=== PATIENT | male | born 1955 | race Caucasian/White ===

== ENCOUNTER 2024-10-17 08:47 | Inpatient (IN) | payer OTHER, SELFPAY ==
[2024-10-17] VITALS (17 sets, daily range): BP systolic 149–176; BP diastolic 71–104; PULSE 95–123; RESP 12–32; TEMP 36.5–36.9; O2SAT 92–100; BMI 29.3; BMI 28.5
--- NOTE | 2024-10-17 08:50 | EDS_ITS ---
HPI History of Present Illness Chief Complaint: Shortness of Breath Informant: patient Onset/Context/Timing Onset: Today Context: sudden Timing: Continuous Quality: Positive for Dyspnea on exertion and Orthopnea Worsened by: Exertion and Lying flat Relieved by: Nothing Associated Symptoms cough; Negative for rhinorrhea, post nasal drip, ear pain, fever, sore throat, chills, sweats, clear sputum, white sputum, yellow sputum or green sputum Narrative Narrative: Patient presents with shortness of breath that began today. Patient states it began rather suddenly. Patient states that woke him up this morning. Patient states his breathing is worse when he lays flat. Patient states that is also worse with exertion. Patient states nothing seems to help with his breathing. Patient states he has a history of COPD. Patient admits to a cough but denies any sputum production. Patient denies any fevers or chills. Patient denies any sore throat or rhinorrhea. Patient denies any chest pain. [facility] Medical History Pneumothorax Hypertension Diabetes Emphysema of lung COPD (chronic obstructive pulmonary disease) Home Medications ?Medication ?Instructions ?Recorded ?Last Taken ?Type albuterol sulfate 1.25 mg/3 mL 0.5 mg inhalation 4X/DA Y PRN 10/17/24 10/17/24 History solution for nebulization shortness of breath or wheez ing albuterol sulfate 90 mcg/actuation 2 inh inhalation 4X /DAY PRN 10/17/24 Unknown History aerosol inhaler (Ventolin HFA) shortness of breath or wheezing budesonide 160 mcg-glycopyr 9 2 inh inhalation BID SILVANO ATHING 10/17/24 Unknown History mcg-formot 4.8 mcg/actuation HFA inhaler (Breztri Aerosphere) cholecalciferol (vitamin D3) 50 50 mcg PO DAILY SUPPLE MENT 10/17/24 10/16/24 History mcg (2,000 unit) capsule clozapine 100 mg tablet 150 mg PO QHS 10/17/2410/16 History docusate sodium 100 mg capsule 100 mg PO BID CONSTIPAT ION 10/17/24 10/16/24 History (Col-Rite) guaifenesin 600 mg tablet, 600 mg PO BID ALLERGIES 10/16/24 History extended release 12 hr hydrophilic 1 applic topical DAILY PRN d ry skin 10/17/24 Unknown History lidocaine 5 % topical patch 1 patch topical DAILY PRN pain 10/17/24 Unknown History (DermacinRx Lidocan) lisinopril 30 mg tablet 30 mg PO DAILY BLOOD PRESSUR E 10/17/24 10/16/24 History loperamide 2 mg capsule 2 mg PO Q6H PRN loose stool 10/17/24 Unknown History (Anti-Diarrheal (loperamide)) metformin 500 mg tablet 2,000 mg PO DAILY DIABETES 0 10/17/24 10/16/24 History mirabegron 25 mg tablet,extended 25 mg PO DAILY OVERRA CTIVE BLADDER 10/17/24 10/16/24 History release 24 hr (Myrbetriq) pantoprazole 40 mg tablet,delayed 40 mg PO DAILY 10/1710/16/24 History release rosuvastatin 40 mg tablet (Crestor) 40 mg PO DAILY CHO LESTROL 10/17/24 10/16/24 History semaglutide 1 mg/dose (4 mg/3 mL) 1 mg subcut QWEEK DI ABETES 10/17/24 10/11/24 History subcutaneous pen injector tamsulosin 0.4 mg capsule 0.8 mg PO QHS PROSTATE 10/1710/16/24 History Allergy/AdvReac Type Severity Reaction Status Date / Time No Known Allergies Allergy Verified 10/17/24 08:58 Surgical History H/O hernia repair Social History Smoking Status: Former smoker ROS ROS ED Constitutional Constitutional ED: Denies chills or fever(s) Eyes Eyes: Denies blurry vision or change in vision ENT ENT ED: Denies rhinorrhea or sore throat Cardiovascular Cardiovascular: Denies chest pain or palpitations Respiratory/Chest Respiratory/Chest: Reports cough and dyspnea Gastrointestinal Gastrointestinal: Denies nausea or vomiting Genitourinary Genitourinary ED: Denies dysuria or hematuria Musculoskeletal Musculoskeletal: Denies back pain or neck pain Integumentary Denies abscess or rash Neurologic Neurologic: Denies headache(s) or weakness Allergic/Immunologic Allergic/Immunologic ED: Denies mouth swelling or urticaria EXAM Physical Exam Const Vital Signs: 10/17/24 08:48 10/17/24 08:53 10/17/24 08:56 Temperature 97.9 F 97.9 F Temperature Source Oral Oral Pulse Rate 123 H 123 H Respiratory Rate 30 H 30 H Respiratory Effort Respiratory Depth Respiratory Pattern Blood Pressure 168/102 H 168/102 H Blood Pressure Mean 124 124 Pulse Ox 100 100 Oxygen Delivery Method Non-Rebreather Nasal Cannula Bi-pap Oxygen Flow Rate (L/min) 15 15 Fraction of Inspired Oxygen (FIO2) 10/17/24 08:56 10/17/24 08:56 10/17/24 09:17 Temperature Temperature Source Pulse Rate 119 H 120 H Respiratory Rate 28 H 24 H Respiratory Effort Respiratory Depth Respiratory Pattern Blood Pressure Blood Pressure Mean Pulse Ox 100 97 Oxygen Delivery Method Bi-pap Oxygen Flow Rate (L/min) Fraction of Inspired Oxygen (FIO2) 35 25 10/17/24 09:19 10/17/24 09:20 10/17/24 10:15 Temperature Temperature Source Pulse Rate 117 H Respiratory Rate 32 H Respiratory Effort Short of Breath Labored Respiratory Depth Shallow Respiratory Pattern Tachypnea Blood Pressure 170/88 H Blood Pressure Mean 115 Pulse Ox 97 Oxygen Delivery Method Nasal Cannula Oxygen Flow Rate (L/min) 2 Fraction of Inspired Oxygen (FIO2) 10/17/24 10:41 10/17/24 11:40 10/17/24 11:43 Temperature 97.8 F 97.8 F Temperature Source Temporal Temporal Pulse Rate 95 99 96 Respiratory Rate 28 H 21 H 25 H Respiratory Effort Respiratory Depth Respiratory Pattern Blood Pressure 172/92 H 174/101 H Blood Pressure Mean 118 125 Pulse Ox 99 98 Oxygen Delivery Method Oxygen Flow Rate (L/min) Fraction of Inspired Oxygen (FIO2) 10/17/24 12:06 Temperature 98 F Temperature Source Temporal Pulse Rate 100 Respiratory Rate 26 H Respiratory Effort Respiratory Depth Respiratory Pattern Blood Pressure 176/104 H Blood Pressure Mean 128 Pulse Ox 97 Oxygen Delivery Method Oxygen Flow Rate (L/min) Fraction of Inspired Oxygen (FIO2) Positive well nourished and well developed General Appearance ED: well developed HEENT Reports moist mucous membranes Neck supple and no meningeal signs Resp Auscultation: wheezes expiratory wheezes and throughout Cardio regular rhythm Rate: tachycardic GI non-tender and non-distended Palpation: soft Neuro oriented x3, CN's II-XII intact bilaterally and no sensory deficits noted [place] Coma Scale: document GCS findings Spontaneous Obeys Commands Oriented 15 Sensorium / Orientation: alert Speech: speech normal Motor Exam: strength 5/5 throughout Psych mental status grossly normal MDM MDM MDM Narrative Medical decision making narrative: Differential diagnosis includes COPD exacerbation, asthma, pneumonia, bronchitis, cardiac dysrhythmia, cardiac ischemia, electrolyte abnormality, and anxiety. EKG will be obtained to assess for cardiac dysrhythmia and cardiac ischemia. Chest x-ray will be obtained to assess for pneumonia or bronchitis. CBC will be obtained to assess for leukocytosis and anemia. Basic metabolic profile will be obtained to assess for electrolyte abnormality and renal function. High-sensitivity troponin will be obtained to assess for cardiac ischemia. History & Record Review Additional record(s) reviewed:: No prior records Lab Data Attestation: I reviewed the patient's lab results. Lab results narrative: CBC was reviewed and was within normal limits. Comprehensive metabolic profile was reviewed. Glucose was elevated at 200. The remainder is within normal limits. Serum lactate was reviewed and was less than 1.0. Initial high- sensitivity troponin was reviewed and was normal at 18. PT with INR and PTT were reviewed and were within normal limits. 2-hour repeat high-sensitivity troponin was reviewed and was 26. Urinalysis was reviewed. There is no evidence of urinary tract infection or hematuria. Labs: Laboratory Results - last 24 hr 10/17/24 10/17/24 10/17/24 08:50 09:38 10:40 WBC 7.8 RBC 5.08 Hgb 14.0 Hct 43.7 MCV 86.0 MCH 27.6 MCHC 32.0 RDW Std Deviation 44.9 H RDW Coeff of Joy 14.2 Plt Count 222 MPV 10.1 Immature Gran % (Auto) 0.300 Neut % (Auto) 61.7 Lymph % (Auto) 21.0 [place] % (Auto) 7.3 Eos % (Auto) 8.7 H Baso % (Auto) 1.0 Absolute Neuts (auto) 4.8 Absolute Lymphs (auto) 1.64 Nucleated RBC % 0 PT 13.8 INR 1.0 APTT 27.9 Sodium 143 Potassium 3.7 Chloride 105 Carbon Dioxide 27.4 Anion Gap 10 BUN 9 Creatinine 0.84 Estim Creat Clear Calc 94.70 Est GFR (MDRD) Non-Af 96 BUN/Creatinine Ratio 10.5 Glucose 200 H Lactic Acid < 1.0 Calcium 9.0 Total Bilirubin 0.29 AST 19 ALT 12 Alkaline Phosphatase 110 Troponin T High Sens 18 Troponin T Hi Sens 2 Hr 26 H Total Protein 6.7 Albumin 4.2 Globulin 2.5 Albumin/Globulin Ratio 1.7 Urine Color Yellow Urine Clarity Clear Urine pH 6.0 Ur Specific [place] 1.020 Urine Protein 100 H Urine Glucose (UA) 100 H Urine Ketones Negative Urine Occult Blood Negative Urine Nitrite Negative Urine Bilirubin Negative Urine Urobilinogen Normal Ur Leukocyte Esterase Negative Urine RBC 0 SEEN Urine WBC 0 SEEN Ur Squamous Epith Cells 0 SEEN Urine Bacteria 0 SEEN Urine Mucus 0 SEEN ABG Data Attestation: I personally reviewed and interpreted this ABG as follows: Interpretation: Venous blood gas was obtained. pH was 7.301, pCO2 was 62.2, PO2 was 43.3, bicarb was 30.7, and oxygen saturation was 72.4%. ABG results: ABG 10/17/24 09:03 Specimen Type BAILEE Sample Site Not entered VBG pH 7.30 L VBG pO2 43 H VBG HCO3 31 H VBG Total CO2 33 VBG O2 Sat (Calc) 72 H VBG Base Excess 4 H POC Mix VBG pCO2 Pt Tmp 62.2 H O2 Delivery Device Cannula Radiography Chest X-Ray - ED: 1 View, Read by ED Physician, Read by Radiologist and - (Mild pulmonary vascular congestion) Diagnostic Testing: Clinical Impression(s) from Imaging Studies Chest X-Ray 10/17/24 09:40 IMPRESSION: No focal consolidations. Mild pulmonary vascular congestion. Reading Location: [facility] Portable 1 view chest x-ray was obtained. On my independent interpretation, lung lopez showed mild pulmonary vascular congestion. There is normal cardiac silhouette. Bony thorax is normal. There is no acute process noted. Radiologist also interpreted the x-ray and agrees. EKG Initial EKG: Attestation: I personally reviewed and interpreted this EKG as follows: Interpretation: Sinus Tachycardia (121), RBBB, LAFB and Non-Specific ST Changes Comments: EKG was obtained. On my independent interpretation, shows sinus tachycardia with a rate of 121. SC interval was normal at 142 ms. QRS interval was slightly prolonged at 134 ms. QTc interval was borderline at 499 ms. There is left axis deviation -57. There is a right bundle branch block pattern noted. There is a left anterior fascicular block noted. There is left ventricular hypertrophy with nonspecific ST-T wave changes noted. Prior EKG tracings: not available for review Prior: No Prior Management Discussion w/another healthcare provider: Hospitalist Treatment and Re-Evaluation :: Patient was started on BiPAP. Patient was given a DuoNeb aerosol. Patient was given a dose of Solu-Medrol. Patient was given a repeat albuterol aerosol. Patient was still having some wheezing on reevaluation. Patient was able to be weaned off BiPAP and is currently on room air. Because of the elevation of his troponin and persistent wheezing, I recommended admission to the hospital. Case was discussed with the hospitalist. He will admit the patient to his service. Patient understood and was agreeable with the plan. All questions were answered. Discharge Plan Dx/Rx/DC Orders Clinical Impression: Acute exacerbation of chronic obstructive pulmonary disease (COPD), Elevated troponin, Hypertension, Diabetes mellitus Disposition Disposition: Acute Care Hospital [facility]
--- NOTE | 2024-10-17 09:00 | CPS ---
FiO2 decreased to 25%, RN aware.
--- NOTE | 2024-10-17 09:00 | EKG12_ITS ---
Test Reason : SOB Blood Pressure : */* mmHG Vent. Rate : 121 BPM Atrial Rate : 121 BPM P-R Int : 142 ms QRS Dur : 134 ms QT Int : 352 ms P-R-T Axes : 85 -57 88 degrees QTcB Int : 499 ms Sinus tachycardia Right bundle branch block Left anterior fascicular block Bifascicular block Left ventricular hypertrophy with repolarization abnormality ( R in aVL ) ABNORMAL Confirmed by Gaurav Nagy ([id number]), image editor PANCHITO ASHFORD ([id number]) on 10/25/2024 1:04:50 PM Referred By: CIERA Confirmed By: Gaurav Nagy
[2024-10-17 09:06] LABS: Blood Gas Specimen Type VEN; O2 Delivery Device Cannula; SITE Not entered; VBG BASE EXCESS 4 mmol/L (-1.0-3.5); VBG Bicarbonate 31 mmol/L (22-26); VBG PO2 43 mmHg (25-40); VBG SO2 72 % (50-70); VBG TCO2 33 mmol/L (23-33); VBG pCO2 62.2 mmHg (41-51)
[2024-10-17] MEDS: MethylPREDNISolone 125 MG/2 ML Vial 80 MG IV (09:09)
[2024-10-17] MEDS: Ipratropium/Albuterol Sulfate 3 ML AMPUL.NEB INHALATION ×4 (09:10→23:29)
[2024-10-17 09:18] LABS: Absolute Lymphocyte Count 1.64 X10^3/uL (0.83-4.51); Absolute Neutrophil Count 4.8 X10^3/uL (2.0-7.7); Basophil# 0.08 X10^3/uL; Eosinophil# 0.68 X10^3/uL; Eosinophils% 8.7 % (0-5); Hematocrit 43.7 % (40-54); Lymphocyte # 1.64 X10^3/ul (0.83-4.51); Mean Corpuscular Hgb 27.6 pg (27.0-32.0); Mean Platelet Vol. 10.1 fl (6.2-12.0); Monocyte# 0.57 X10^3/uL; Monocyte% 7.3 % (0-10); NRBC Flagged by Analyzer 0 % (0-5); Neutrophil # 4.81 X10^3/uL (2.7-7.7); Neutrophil % 61.7 % (47-70); Platelet Count 222 K/mm3 (150-450); RBC Distribution Width CV 14.2 % (11.6-14.6); RBC Distribution Width SD 44.9 fl (35.1-43.9); Red Blood Count 5.08 M/mm3 (4.6-6.2); White Blood Count 7.8 K/mm3 (4.4-11.0)
[2024-10-17 09:24] LABS: Partial Thromboplast Time 27.9 Seconds (24.1-36.2); Prothrombin Time (Protime)PT. 13.8 SECONDS (11.7-14.9)
--- NOTE | 2024-10-17 09:40 | RAD_ITS ---
PROCEDURE: CHEST 1 VIEW (PORTABLE) 10/17/2024 REASON FOR EXAM: DYSPNEA TECHNIQUE: Frontal view of the chest. COMPARISON: None FINDINGS: No focal consolidations. Bibasilar subsegmental atelectasis. Mild pulmonary vascular congestion. Cardiac silhouette is within normal limits. No pleural effusion or pneumothorax. No acute fractures. RAD/Chest 1 View (Portable) IMPRESSION: No focal consolidations. Mild pulmonary vascular congestion. Reading Location: [id number]
[2024-10-17 09:42] LABS: Bacteria 0 SEEN /hpf (None Seen); Mucous, Urine 0 SEEN /hpf (<or=2+); Red Blood Cells-Urine 0 SEEN /hpf (0-5); Squamous Epithelial Cells - UA 0 SEEN /hpf (0-5); White Blood Cells 0 SEEN /hpf (0-5)
[2024-10-17 09:46] LABS: ALB/GLOB Ratio 1.7 RATIO (0.9-2.4); AST(SGOT) 19 U/L (<=37); Alanine Aminotransfer ALT/SGPT 12 U/L (<=46); Albumin, Serum 4.2 g/dL (3.4-4.8); Alkaline Phosphatase 110 U/L (40-129); Anion Gap 10 (5-15); BUN 9 mg/dL (4-19); BUN/Creat Ratio 10.5 RATIO (10-20); Carbon Dioxide 27.4 mmol/L (21.0-32.0); Chloride 105 mmol/L (98-108); Creatinine, Serum 0.84 mg/dL (0.70-1.20); EST Glomerular Filtration Rate 96 (>60); Globulin 2.5 g/dL (2.2-4.2); Glucose 200 mg/dL (70-99); Potassium 3.7 mmol/L (3.3-5.1); Protein, Total 6.7 g/dL (5.9-8.4); Sodium Level 143 mmol/L (133-145); Total Bilirubin 0.29 mg/dL (0.00-1.30); Troponin T High Sensitivity 18 ng/L (<=22)
[2024-10-17 09:54] LABS: Lactic Acid < 1.0 mmol/L (0.0-2.0)
[2024-10-17 09:55] LABS: Color, Urine Yellow (Yellow); Glucose, Dipstick 100 mg/dl (Normal); Ketone-Dipstick Negative (Negative); Leukocyte Esterase-Dipstick Negative /ul (Negative); Nitrite-Dipstick Negative (Negative); Occult Blood-Urine Negative /ul (Negative); Protein-Dipstick 100 mg/dl (Negative); Urine Bilirubin Dipstick Negative (Negative); Urine Clarity Clear (Clear); Urine Urobilinogen Normal (Normal)
[2024-10-17 11:06] LABS: Troponin T High Sens 2 HR 26 ng/L (<=22)
[2024-10-17] MEDS: Albuterol 2.5 MG/3 ML VIAL.NEB. INHALATION (11:40)
--- NOTE | 2024-10-17 12:24 | ED.RN ---
Called [facility]. Transfer line stated that it would be best to admit pt here and go from there.
--- NOTE | 2024-10-17 12:36 | HP.PCM.HOS_ITS ---
HPI - General General Date of Admission: 10/17/24 Date of Service: 10/17/24 Chief Complaint: Shortness of breath HPI Narrative AARON REDMOND, is a 68 M past medical history seen for shortness of breath who is currently complaining the area presented to the emergency department with shortness of breath. Per patient he was in usual state of health a day prior to his admission when he started experiencing significant shortness of breath as well as associated wheezing and persistent cough. Patient had apparently used his aerosol treatment without much improvement. He finally called the squad on the morning of his presentation was brought to the emergency department. Patient was found to be significantly hypoxic and dyspneic at rest was placed on noninvasive ventilation. Subsequently admitted to a monitored bed for further manage [facility] Medical History Pneumothorax Hypertension Diabetes Emphysema of lung COPD (chronic obstructive pulmonary disease) Home Medications ?Medication ?Instructions ?Recorded ?Last Taken ?Type albuterol sulfate 1.25 mg/3 mL 0.5 mg inhalation 4X/DA Y PRN 10/17/24 10/17/24 History solution for nebulization shortness of breath or wheez ing albuterol sulfate 90 mcg/actuation 2 inh inhalation 4X /DAY PRN 10/17/24 Unknown History aerosol inhaler (Ventolin HFA) shortness of breath or wheezing budesonide 160 mcg-glycopyr 9 2 inh inhalation BID SILVANO ATHING 10/17/24 Unknown History mcg-formot 4.8 mcg/actuation HFA inhaler (Breztri Aerosphere) cholecalciferol (vitamin D3) 50 50 mcg PO DAILY SUPPLE MENT 10/17/24 10/16/24 History mcg (2,000 unit) capsule clozapine 100 mg tablet 150 mg PO QHS 10/17/2410/16 History docusate sodium 100 mg capsule 100 mg PO BID CONSTIPAT ION 10/17/24 10/16/24 History (Col-Rite) guaifenesin 600 mg tablet, 600 mg PO BID ALLERGIES 10/16/24 History extended release 12 hr hydrophilic 1 applic topical DAILY PRN d ry skin 10/17/24 Unknown History lidocaine 5 % topical patch 1 patch topical DAILY PRN pain 10/17/24 Unknown History (DermacinRx Lidocan) lisinopril 30 mg tablet 30 mg PO DAILY BLOOD PRESSUR E 10/17/24 10/16/24 History loperamide 2 mg capsule 2 mg PO Q6H PRN loose stool 10/17/24 Unknown History (Anti-Diarrheal (loperamide)) metformin 500 mg tablet 2,000 mg PO DAILY DIABETES 0 10/17/24 10/16/24 History mirabegron 25 mg tablet,extended 25 mg PO DAILY OVERRA CTIVE BLADDER 10/17/24 10/16/24 History release 24 hr (Myrbetriq) pantoprazole 40 mg tablet,delayed 40 mg PO DAILY 10/1710/16/24 History release rosuvastatin 40 mg tablet (Crestor) 40 mg PO DAILY CHO LESTROL 10/17/24 10/16/24 History semaglutide 1 mg/dose (4 mg/3 mL) 1 mg subcut QWEEK DI ABETES 10/17/24 10/11/24 History subcutaneous pen injector tamsulosin 0.4 mg capsule 0.8 mg PO QHS PROSTATE 10/1710/16/24 History Allergy/AdvReac Type Severity Reaction Status Date / Time No Known Allergies Allergy Verified 10/17/24 08:58 Surgical History H/O hernia repair Social History Smoking Status: Former smoker ROS ROS Narrative GENERAL: denies fever, chills, night sweats, weight loss, anorexia HEENT: denies headache, sinus congestion, or drainage, dysphagia RESPIRATORY: cough, sputum production, shortness of breath, dyspnea on exertion CARDIAC: denies chest pain, palpitations, orthopnea, PND GASTROINTESTINAL: denies abdominal pain, nausea, vomiting, melena, GENITOURINARY: denies dysuria, urgency, frequency, heamaturia EXTREMITY: denies swelling MUSCULOSKELETAL: denies current joint pain or tenderness NEUROLOGIC: denies focal numbness, weakness, tingling HEMATOLOGIC: denies easy bruising and/or hemorrhage INTEGUMENT: denies rashes PSYCHIATRIC: denies suicidal or homicidal ideation Vital Signs Vital Signs Vital Signs: 10/17/24 08:48 10/17/24 08:53 10/17/24 08:56 Temperature 97.9 F 97.9 F Temperature Source Oral Oral Pulse Rate 123 H 123 H Respiratory Rate 30 H 30 H Respiratory Effort Respiratory Depth Respiratory Pattern Blood Pressure 168/102 H 168/102 H Blood Pressure Mean 124 124 Pulse Ox 100 100 Oxygen Delivery Method Non-Rebreather Nasal Cannula Bi-pap Oxygen Flow Rate (L/min) 15 15 Fraction of Inspired Oxygen (FIO2) 10/17/24 08:56 10/17/24 08:56 10/17/24 09:17 Temperature Temperature Source Pulse Rate 119 H 120 H Respiratory Rate 28 H 24 H Respiratory Effort Respiratory Depth Respiratory Pattern Blood Pressure Blood Pressure Mean Pulse Ox 100 97 Oxygen Delivery Method Bi-pap Oxygen Flow Rate (L/min) Fraction of Inspired Oxygen (FIO2) 35 25 10/17/24 09:19 10/17/24 09:20 10/17/24 10:15 Temperature Temperature Source Pulse Rate 117 H Respiratory Rate 32 H Respiratory Effort Short of Breath Labored Respiratory Depth Shallow Respiratory Pattern Tachypnea Blood Pressure 170/88 H Blood Pressure Mean 115 Pulse Ox 97 Oxygen Delivery Method Nasal Cannula Oxygen Flow Rate (L/min) 2 Fraction of Inspired Oxygen (FIO2) 10/17/24 10:41 10/17/24 11:40 10/17/24 11:43 Temperature 97.8 F 97.8 F Temperature Source Temporal Temporal Pulse Rate 95 99 96 Respiratory Rate 28 H 21 H 25 H Respiratory Effort Respiratory Depth Respiratory Pattern Blood Pressure 172/92 H 174/101 H Blood Pressure Mean 118 125 Pulse Ox 99 98 Oxygen Delivery Method Oxygen Flow Rate (L/min) Fraction of Inspired Oxygen (FIO2) 10/17/24 12:06 Temperature 98 F Temperature Source Temporal Pulse Rate 100 Respiratory Rate 26 H Respiratory Effort Respiratory Depth Respiratory Pattern Blood Pressure 176/104 H Blood Pressure Mean 128 Pulse Ox 97 Oxygen Delivery Method Oxygen Flow Rate (L/min) Fraction of Inspired Oxygen (FIO2) Weight Weight: 90.1 kg Body Mass Index (BMI) 29.3 Physical Exam Narrative GENERAL: cooperative but significantly dyspneic at rest HEENT: Atraumatic; normocephalic EYES; Anicteric, Normal Conjunctiva NECK; supple, normal thyroid, RESPIRATORY: Diminished to auscultation with bilateral wheezes CARDIOVASCULAR: Regular S1 S2, tachycardic GI: soft, normoactive bowel sounds, : No Renal angle tenderness; EXTREMITIES: No edema, no clubbing, MUSCULOSKELETAL: no muscle wasting NEURO: Awake; no lateralizing signs. SKIN: No Rash PSYCH; Flat affect Results Lab / Micro Data 10/17/24 08:50 10/17/24 08:50 Labs: Laboratory Results - last 24 hr 10/17/24 08:50: WBC 7.8, RBC 5.08, Hgb 14.0, Hct 43.7, MCV 86.0, MCH 27.6, MCHC 32.0, RDW Std Deviation 44.9 H, RDW Coeff of Joy 14.2, Plt Count 222, MPV 10.1, Immature Gran % (Auto) 0.300, Neut % (Auto) 61.7, Lymph % (Auto) 21.0, [place] % (Auto) 7.3, Eos % (Auto) 8.7 H, Baso % (Auto) 1.0, Absolute Neuts (auto) 4.8, Absolute Lymphs (auto) 1.64, Nucleated RBC % 0, PT 13.8, INR 1.0, APTT 27.9, Sodium 143, Potassium 3.7, Chloride 105, Carbon Dioxide 27.4, Anion Gap 10, BUN 9, Creatinine 0.84, Estim Creat Clear Calc 94.70, Est GFR (MDRD) Non-Af 96, BUN/Creatinine Ratio 10.5, Glucose 200 H, Lactic Acid < 1.0, Calcium 9.0, Total Bilirubin 0.29, AST 19, ALT 12, Alkaline Phosphatase 110, Troponin T High Sens 18, Total Protein 6.7, Albumin 4.2, Globulin 2.5, Albumin/Globulin Ratio 1.7 10/17/24 09:38: Urine Color Yellow, Urine Clarity Clear, Urine pH 6.0, Ur Specific [place] 1.020, Urine Protein 100 H, Urine Glucose (UA) 100 H, Urine Ketones Negative, Urine Occult Blood Negative, Urine Nitrite Negative, Urine Bilirubin Negative, Urine Urobilinogen Normal, Ur Leukocyte Esterase Negative, Urine RBC 0 SEEN, Urine WBC 0 SEEN, Ur Squamous Epith Cells 0 SEEN, Urine Bacteria 0 SEEN, Urine Mucus 0 SEEN 10/17/24 10:40: Troponin T Hi Sens 2 Hr 26 H ABG Data ABG results: ABG 10/17/24 09:03 Specimen Type BAILEE Sample Site Not entered VBG pH 7.30 L VBG pO2 43 H VBG HCO3 31 H VBG Total CO2 33 VBG O2 Sat (Calc) 72 H VBG Base Excess 4 H POC Mix VBG pCO2 Pt Tmp 62.2 H O2 Delivery Device Cannula Imaging Radiology Impression Chest X-Ray 10/17/24 09:40 IMPRESSION: No focal consolidations. Mild pulmonary vascular congestion. Reading Location: [facility] Assessment & Plan Assessment/Plan (1) Hypertension: (2) Acute exacerbation of chronic obstructive pulmonary disease (COPD): PLAN: Plan Patient is a 68-year-old gentleman presenting with shortness of breath 1. Acute hypoxic respiratory failure Secondary to COPD with acute exacerbation. Patient was placed on noninvasive ventilation BiPAP admitted to a monitored bed as part of his management patient started on systemic steroid, bronchodilator treatment and antibiotic therapy with cefdinir. Patient oxygen saturations currently being titrated to keep saturation greater than or above 90. As part of patient's evaluation ordered acute viral respiratory panel, COVID assay. Chest x-ray obtained in the ED was questionable for mild pulmonary vascular congestion however patient presentation not consistent with acute congestive heart failure 2. Accelerated hypertension ? Patient systolic blood pressure was markedly elevated in the ED with SBP greater than 180. Per patient he has not taken his a.m. medications. Plan is to reconcile and resume patient home meds also added hydralazine as needed for systolic blood pressure greater than 160 3. Diabetes mellitus type II -patient's oral hypoglycemics held. Placed on long acting insulin, Accu-Cheks a.c. and at bedtime and covered with sliding scale insulin 4. Elevated troponin Secondary to demand ischemia from hypoxia will monitor and obtain a 2D echo as part of patient's evaluation 5. Schizoaffective disorder ? Patient is on clozapine plan is to continue with home dose 6. GERD ? Patient is on PPI continue 7. BPH with lower urinary obstructive symptoms - Patient treated with tamsulosin 8. DVT prophylaxis ? On enoxaparin Advance planning; did discuss with the patient regarding advanced directives as well as CODE STATUS. Did explain the various scenarios involved ( FULL CODE, DNR CCA, DNR CCA with no intubation, and DNR CC and what each meant) patient elected to be to remain full code with CPR and intubation if needed. Order was placed. Time spent on discussion 18 minutes. Charges/Coding Multi Select Codes Visit Charges Visit Charges: 26129 Init Hosp L3 Hospitalists' Procedures Procedures: 43421 Advncd Care Plan 30 Min
[2024-10-17 13:09] LABS: Troponin T High Sens 4 HR 30 ng/L (<=22)
[2024-10-17] MEDS: Cefdinir 300 MG Capsule PO ×2 (15:35→21:31)
[2024-10-17] MEDS: 0.9% Saline Lock 10 ML Syringe IV ×2 (15:36→21:45)
[2024-10-17 17:04] LABS: Bedside Glucose 366 mg/dL (74-106)
[2024-10-17] MEDS: Insulin Lispro 100 UNIT/ML INSULN.PEN SC ×2 (17:21→21:37)
[2024-10-17] MEDS: Lisinopril 10 MG Tablet 30 MG PO (18:44)
[2024-10-17] MEDS: cloZAPine 25 MG TABLET 150 MG PO (21:31)
[2024-10-17] MEDS: guaiFENesin 600 MG Tablet PO (21:31)
[2024-10-17] MEDS: Docusate Sodium 100 MG Capsule PO (21:31)
[2024-10-17] MEDS: Tamsulosin HCl 0.4 MG Capsule 0.8 MG PO (21:32)
[2024-10-17] MEDS: Atorvastatin Calcium 80 MG Tablet PO (21:32)
[2024-10-17 22:36] LABS: Bedside Glucose 285 mg/dL (74-106)
[2024-10-18] VITALS (11 sets, daily range): BP systolic 142–158; BP diastolic 74–78; PULSE 90–100; RESP 16–24; TEMP 35.9–36.9; O2SAT 91–97
[2024-10-18] MEDS: Ipratropium/Albuterol Sulfate 3 ML AMPUL.NEB INHALATION ×6 (03:31→22:56)
[2024-10-18 05:01] LABS: Absolute Lymphocyte Count 0.86 X10^3/uL (0.83-4.51); Absolute Neutrophil Count 5.4 X10^3/uL (2.0-7.7); Basophil# 0.01 X10^3/uL; Basophil% 0.2 % (0-1); Hematocrit 41.5 % (40-54); Hemoglobin 13.7 g/dL (13.0-16.5); Lymphocyte # 0.86 X10^3/ul (0.83-4.51); Lymphocyte % 13.3 % (19-41); Mean Corpuscular Hgb 27.6 pg (27.0-32.0); Mean Corpuscular Volume 83.5 fL (80-94); Mean Platelet Vol. 10.9 fl (6.2-12.0); Monocyte# 0.15 X10^3/uL; Monocyte% 2.3 % (0-10); NRBC Flagged by Analyzer 0 % (0-5); Neutrophil # 5.44 X10^3/uL (2.7-7.7); Neutrophil % 83.7 % (47-70); Platelet Count 222 K/mm3 (150-450); RBC Distribution Width SD 42.8 fl (35.1-43.9); Red Blood Count 4.97 M/mm3 (4.6-6.2); White Blood Count 6.5 K/mm3 (4.4-11.0)
[2024-10-18 05:26] LABS: Anion Gap 12 (5-15); BUN 12 mg/dL (4-19); Calcium,Total 9.2 mg/dL (7.6-11.0); Chloride 102 mmol/L (98-108); Creatinine, Serum 0.78 mg/dL (0.70-1.20); EST Glomerular Filtration Rate 98 (>60); Estimated Creatinine Clearance 98.27 ml/min (50-250); Glucose 247 mg/dL (70-99); Magnesium 2.2 mg/dL (1.5-2.2); Potassium 3.6 mmol/L (3.3-5.1); Sodium Level 138 mmol/L (133-145)
[2024-10-18] MEDS: Insulin Lispro 100 UNIT/ML INSULN.PEN SC ×4 (06:18→20:37)
[2024-10-18] MEDS: Mag Hydrox/Al Hydrox/Simeth 30 ML UDC PO (06:23)
[2024-10-18 06:51] LABS: Bedside Glucose 224 mg/dL (74-106)
--- NOTE | 2024-10-18 07:23 | ECHOD_ITS ---
Reason For Study Reason For Study: Dyspnea/SOB Procedure This was a 2D Doppler, Color Flow transthoracic echocardiogram. Exam performed portable in patient room. Left Ventricle Normal left ventricle. The estimated ejection fraction is 55-60 %. Right Ventricle Normal right ventricle. Normal systolic function. Atria Normal left atrium. Normal right atrium. Mitral Valve The mitral valve is structurally normal. No prolapse or stenosis seen. Tricuspid Valve Normal tricuspid valve. Aortic Valve Trisinus/trileaflet aortic valve. Pulmonic Valve The pulmonic valve is not well visualized. Great Vessels Normal sized aortic root. Pericardium/Pleural No pericardial effusion. MMode/2D Measurements & Calculations LVIDd: 4.6 cm IVSd: 1.4 cm Ao root diam: 3.0 cm LVIDs: 3.2 cm LVPWd: 1.4 cm RVDd: 3.4 cm FS: 29.7 % LAV(MOD-bp): 38.4 ml LVAd ap4: 29.4 cm2 SV(MOD-sp4): 52.6 ml LAV(MOD-bp) Indexed: 18.7 ml/m2 LVLd ap4: 7.6 cm SI(MOD-sp4): 25.6 ml/m2 LAV(MOD-sp2): 41.7 ml EDV(MOD-sp4): 92.9 ml LAV(MOD-sp4): 32.1 ml EDV(sp4-el): 96.3 ml LVAs ap4: 16.6 cm2 LVLs ap4: 6.0 cm ESV(MOD-sp4): 40.3 ml ESV(sp4-el): 38.7 ml EF(MOD-sp4): 56.6 % EF(sp4-el): 59.9 % SV(sp4-el): 57.7 ml LA A4 area: 14.4 cm2 LA dimension(2D): 3.4 cm RA A4 area: 10.3 cm2 TAPSE: 2.5 cm Time Measurements MV dec time: 0.19 sec Doppler Measurements & Calculations MV E max aleks: 91.8 cm/sec Lat Peak E' Aleks: 8.2 cm/sec Med Peak E' Aleks: 5.9 cm/sec MV A max aleks: 120.7 cm/sec E/E' lat: 11.2 E/E' med: 15.5 MV E/A: 0.76 Ao V2 max: 193.6 cm/sec LV V1 max: 115.1 cm/sec MV dec slope: 493.3 cm/sec2 Ao max P.0 mmHg LV V1 max P.3 mmHg Ao V2 mean: 135.4 cm/sec Ao mean P.4 mmHg Ao V2 VTI: 40.7 cm PA V2 max: 111.0 cm/sec ECHO/Echo Complete Interpretation Summary The estimated ejection fraction is 55-60 %. Normal LV systolic function No significant valvular abnormality No prior echocardiogram to compare. Ordering Physician: Magan Cooper Referring Physician: [facility] Performed By: Susanna Love, REBECA, RVT
[2024-10-18] MEDS: Enoxaparin 40 MG/0.4 ML Syringe SC (07:52)
[2024-10-18] MEDS: Vibegron 75 MG TABLET PO (07:52)
[2024-10-18] MEDS: guaiFENesin 600 MG Tablet PO ×2 (07:52→20:39)
[2024-10-18] MEDS: Cefdinir 300 MG Capsule PO ×2 (07:52→20:39)
[2024-10-18] MEDS: Lisinopril 10 MG Tablet 30 MG PO (07:52)
[2024-10-18] MEDS: Pantoprazole Sodium 40 MG Tablet PO (07:53)
--- NOTE | 2024-10-18 07:58 | PCM.PN.HOSP ---
Reason for Visit Reason for Visit: Diagnoses Essential (primary) hypertension (10/17/24) Chronic obstructive pulmonary disease with (acute) exacerbation (10/17/24) Subjective Subjective Patient is a 68-year-old gentleman presenting with shortness of breath. An assessment of Acute hypoxic respiratory failure Secondary to COPD with acute exacerbation. Treatment initiated per protocol patient admitted to monitored bed Objective Data Objective Data Vital Signs: Vital Signs Temp Pulse Resp BP Pulse Ox O2 Del Method O2 Flow Rate 97.8 F 91 16 155/78 H 95 Nasal Cannula 3 10/18/24 07:48 10/18/24 07:48 10/18/24 07:48 10/18/24 07:48 10/18/24 07:48 10/18/24 07:48 10/18/24 07:41 FiO2 25 10/17/24 09:17 Oxygen Flow Rate (L/min) 3 Oxygen Delivery Method Nasal Cannula Weight: 87.8 kg Body Mass Index (BMI) 28.5 Intake & Output: Intake and Output for Last 24 Hours 10/16/24 10/17/24 10/18/24 23:59 23:59 23:59 Intake Total 300 / 300 Output Total 300 / 300 1000 / 1000 Balance 0 / 0 -1000 / -1000 Lab / Micro Data 10/18/24 04:14 10/18/24 04:14 Labs: Laboratory Results - last 24 hr 10/17/24 08:50: WBC 7.8, RBC 5.08, Hgb 14.0, Hct 43.7, MCV 86.0, MCH 27.6, MCHC 32.0, RDW Std Deviation 44.9 H, RDW Coeff of Joy 14.2, Plt Count 222, MPV 10.1, Immature Gran % (Auto) 0.300, Neut % (Auto) 61.7, Lymph % (Auto) 21.0, Isabel[place] % (Auto) 7.3, Eos % (Auto) 8.7 H, Baso % (Auto) 1.0, Absolute Neuts (auto) 4.8, Absolute Lymphs (auto) 1.64, Nucleated RBC % 0, PT 13.8, INR 1.0, APTT 27.9, Sodium 143, Potassium 3.7, Chloride 105, Carbon Dioxide 27.4, Anion Gap 10, BUN 9, Creatinine 0.84, Estim Creat Clear Calc 94.70, Est GFR (MDRD) Non-Af 96, BUN/Creatinine Ratio 10.5, Glucose 200 H, Lactic Acid < 1.0, Calcium 9.0, Total Bilirubin 0.29, AST 19, ALT 12, Alkaline Phosphatase 110, Troponin T High Sens 18, Total Protein 6.7, Albumin 4.2, Globulin 2.5, Albumin/Globulin Ratio 1.7 10/17/24 09:38: Urine Color Yellow, Urine Clarity Clear, Urine pH 6.0, Ur Specific Schroeder 1.020, Urine Protein 100 H, Urine Glucose (UA) 100 H, Urine Ketones Negative, Urine Occult Blood Negative, Urine Nitrite Negative, Urine Bilirubin Negative, Urine Urobilinogen Normal, Ur Leukocyte Esterase Negative, Urine RBC 0 SEEN, Urine WBC 0 SEEN, Ur Squamous Epith Cells 0 SEEN, Urine Bacteria 0 SEEN, Urine Mucus 0 SEEN 10/17/24 10:40: Troponin T Hi Sens 2 Hr 26 H 10/17/24 12:45: Troponin T Hi Sens 4Hr 30 H 10/17/24 16:42: POC Glucose 366 H 10/17/24 21:36: POC Glucose 285 H 10/18/24 04:14: WBC 6.5, RBC 4.97, Hgb 13.7, Hct 41.5, MCV 83.5, MCH 27.6, MCHC 33.0, RDW Std Deviation 42.8, RDW Coeff of Joy 14.0, Plt Count 222, MPV 10.9, Immature Gran % (Auto) 0.500, Neut % (Auto) 83.7 H, Lymph % (Auto) 13.3 L, Isabel[place] % (Auto) 2.3, Eos % (Auto) 0.0, Baso % (Auto) 0.2, Absolute Neuts (auto) 5.4, Absolute Lymphs (auto) 0.86, Nucleated RBC % 0, Sodium 138, Potassium 3.6, Chloride 102, Carbon Dioxide 24.0, Anion Gap 12, BUN 12, Creatinine 0.78, Estim Creat Clear Calc 98.27, Est GFR (MDRD) Non-Af 98, BUN/Creatinine Ratio 15.0, Glucose 247 H, Calcium 9.2, Phosphorus 3.0, Magnesium 2.2 10/18/24 06:17: POC Glucose 224 H Micro: Microbiology 10/17/24 14:12 Stool Clostridioides difficile (PCR) - Final 10/17/24 13:40 Mucosa - Nasopharyngeal Respiratory Panel (PCR) - Final 10/17/24 15:38 Nasal Secretion SARS-CoV-2 Antigen (Rapid) - Final ABG Data ABG results: ABG 10/17/24 09:03 Specimen Type BAILEE Sample Site Not entered VBG pH 7.30 L VBG pO2 43 H VBG HCO3 31 H VBG Total CO2 33 VBG O2 Sat (Calc) 72 H VBG Base Excess 4 H POC Mix VBG pCO2 Pt Tmp 62.2 H O2 Delivery Device Cannula Radiography Diagnostic Testing: Radiology Impression Chest X-Ray 10/17/24 09:40 IMPRESSION: No focal consolidations. Mild pulmonary vascular congestion. Reading Location: [facility] Physical Exam Narrative GENERAL: cooperative HEENT: Atraumatic; normocephalic EYES; Anicteric, Normal Conjunctiva NECK; supple, normal thyroid, RESPIRATORY: Diminished to auscultation with bilateral wheezes CARDIOVASCULAR: Regular S1 S2, tachycardic GI: soft, normoactive bowel sounds, : No Renal angle tenderness; EXTREMITIES: No edema, no clubbing, MUSCULOSKELETAL: no muscle wasting NEURO: Awake; no lateralizing signs. SKIN: No Rash PSYCH; Flat affect Assessment & Plan Assessment/Plan (1) Hypertension: (2) Acute exacerbation of chronic obstructive pulmonary disease (COPD): PLAN: Plan Patient is a 68-year-old gentleman presenting with shortness of breath 1. Acute hypoxic respiratory failure Secondary to COPD with acute exacerbation. Patient was placed on noninvasive ventilation BiPAP admitted to a monitored bed as part of his management patient started on systemic steroid, bronchodilator treatment and antibiotic therapy with cefdinir. Patient oxygen saturations currently being titrated to keep saturation greater than or above 90. As part of patient's evaluation ordered acute viral respiratory panel, COVID assay. Chest x-ray obtained in the ED was questionable for mild pulmonary vascular congestion however patient presentation not consistent with acute congestive heart failure ? 10/18/2024; patient subsequently been weaned off BiPAP. Now on nasal cannula.Plans for patient to be assessed for home oxygen prior to discharge 2. Accelerated hypertension ? Patient systolic blood pressure was markedly elevated in the ED with SBP greater than 180. Per patient he has not taken his a.m. medications. Plan is to reconcile and resume patient home meds also added hydralazine as needed for systolic blood pressure greater than 160 ? 10/18/2024; patient blood pressure levels still remain elevated however there has been some improvement compared to when first admitted. 3. Diabetes mellitus type II -patient's oral hypoglycemics held. Placed on long acting insulin, Accu-Cheks a.c. and at bedtime and covered with sliding scale insulin ? 10/18/2024; patient glucose levels elevated given concomitant use of steroid subsequently adjusted insulin dose 4. Elevated troponin Secondary to demand ischemia from hypoxia will monitor and obtain a 2D echo as part of patient's evaluation 5. Schizoaffective disorder ? Patient is on clozapine plan is to continue with home dose 6. GERD ? Patient is on PPI continue 7. BPH with lower urinary obstructive symptoms - Patient treated with tamsulosin 8. DVT prophylaxis ? On enoxaparin Charges/Coding Visit Charges Inpatient E&M: 39471 Subs Hosp L2
[2024-10-18] MEDS: Acetaminophen 325 MG Tablet 650 MG PO (08:15)
[2024-10-18] MEDS: Insulin Glargine-YFGN 100 UNIT/ML Pen 10 UNIT SC ×2 (11:43→20:38)
[2024-10-18 12:18] LABS: Bedside Glucose 338 mg/dL (74-106)
[2024-10-18] MEDS: 0.9% Saline Lock 10 ML Syringe IV (13:35)
[2024-10-18 16:41] LABS: Bedside Glucose 367 mg/dL (74-106)
[2024-10-18] MEDS: Atorvastatin Calcium 80 MG Tablet PO (20:39)
[2024-10-18] MEDS: Tamsulosin HCl 0.4 MG Capsule 0.8 MG PO (20:39)
[2024-10-18] MEDS: Docusate Sodium 100 MG Capsule PO (20:39)
[2024-10-18 21:39] LABS: Bedside Glucose 359 mg/dL (74-106)
[2024-10-18] MEDS: cloZAPine 25 MG TABLET 150 MG PO (21:55)
[2024-10-19] VITALS (15 sets, daily range): BP systolic 133–157; BP diastolic 72–88; PULSE 65–120; RESP 16–24; TEMP 36–36.8; O2SAT 86–98
[2024-10-19] MEDS: Ipratropium/Albuterol Sulfate 3 ML AMPUL.NEB INHALATION ×6 (03:16→23:05)
[2024-10-19] MEDS: Insulin Lispro 100 UNIT/ML INSULN.PEN SC ×4 (06:19→22:28)
[2024-10-19 06:37] LABS: Bedside Glucose 244 mg/dL (74-106)
[2024-10-19 07:16] LABS: Basophil# 0.02 X10^3/uL; Basophil% 0.2 % (0-1); Eosinophil# 0.01 X10^3/uL; Eosinophils% 0.1 % (0-5); Hematocrit 40.1 % (40-54); Lymphocyte % 13.3 % (19-41); Mean Corp Hgb Conc 32.4 g/dL (32-36); Mean Corpuscular Hgb 27.5 pg (27.0-32.0); Mean Corpuscular Volume 84.8 fL (80-94); Mean Platelet Vol. 10.4 fl (6.2-12.0); Monocyte# 0.74 X10^3/uL; Monocyte% 6.6 % (0-10); NRBC Flagged by Analyzer 0 % (0-5); Neutrophil # 8.96 X10^3/uL (2.7-7.7); Neutrophil % 79.3 % (47-70); Platelet Count 230 K/mm3 (150-450); RBC Distribution Width CV 14.6 % (11.6-14.6); RBC Distribution Width SD 45.2 fl (35.1-43.9); Red Blood Count 4.73 M/mm3 (4.6-6.2); White Blood Count 11.3 K/mm3 (4.4-11.0)
[2024-10-19 07:44] LABS: Anion Gap 10 (5-15); BUN 15 mg/dL (4-19); BUN/Creat Ratio 16.8 RATIO (10-20); Calcium,Total 8.9 mg/dL (7.6-11.0); Carbon Dioxide 26.2 mmol/L (21.0-32.0); Chloride 102 mmol/L (98-108); Creatinine, Serum 0.91 mg/dL (0.70-1.20); EST Glomerular Filtration Rate 92 (>60); Estimated Creatinine Clearance 86.39 ml/min (50-250); Glucose 261 mg/dL (70-99); Potassium 3.9 mmol/L (3.3-5.1); Sodium Level 139 mmol/L (133-145)
--- NOTE | 2024-10-19 07:46 | DS.PCM_ITS ---
Providers Date of Admission: 10/17/24 Primary Care Physician: [facility] Reason For Visit: COPD WITH ACUTE EXACERBATION Diagnosis Discharge Diagnosis (1) Hypertension: Status: Chronic Code(s): I10 - Essential (primary) hypertension (2) Acute exacerbation of chronic obstructive pulmonary disease (COPD): Status: Chronic Code(s): J44.1 - Chronic obstructive pulmonary disease with (acute) exacerbation Plan Patient is a 68-year-old gentleman presenting with shortness of breath 1. Acute hypoxic respiratory failure Secondary to COPD with acute exacerbation. Patient was placed on noninvasive ventilation BiPAP admitted to a monitored bed as part of his management patient started on systemic steroid, bronchodilator treatment and antibiotic therapy with cefdinir. Patient oxygen saturations currently being titrated to keep saturation greater than or above 90. As part of patient's evaluation ordered acute viral respiratory panel, COVID assay. Chest x-ray obtained in the ED was questionable for mild pulmonary vascular congestion however patient presentation not consistent with acute congestive heart failure ? 10/18/2024; patient subsequently been weaned off BiPAP. Now on nasal cannula.Plans for patient to be assessed for home oxygen prior to discharge 2. Accelerated hypertension ? Patient systolic blood pressure was markedly elevated in the ED with SBP greater than 180. Per patient he has not taken his a.m. medications. Plan is to reconcile and resume patient home meds also added hydralazine as needed for systolic blood pressure greater than 160 ? 10/18/2024; patient blood pressure levels still remain elevated however there has been some improvement compared to when first admitted. 3. Diabetes mellitus type II -patient's oral hypoglycemics held. Placed on long acting insulin, Accu-Cheks a.c. and at bedtime and covered with sliding scale insulin ? 10/18/2024; patient glucose levels elevated given concomitant use of steroid subsequently adjusted insulin dose 4. Elevated troponin Secondary to demand ischemia from hypoxia will monitor and obtain a 2D echo as part of patient's evaluation 5. Schizoaffective disorder ? Patient is on clozapine plan is to continue with home dose 6. GERD ? Patient is on PPI continue 7. BPH with lower urinary obstructive symptoms - Patient treated with tamsulosin 8. DVT prophylaxis ? On enoxaparin Medications at Discharge Home Medications albuterol sulfate 1.25 mg/3 mL solution for nebulization 0.5 mg inhalation 4X/DAY PRN shortness of breath or wheezing 10/17/24 albuterol sulfate 90 mcg/actuation aerosol inhaler (Ventolin HFA) 2 inh inhalation 4X/DAY PRN shortness of breath or wheezing 10/17/24 budesonide 160 mcg-glycopyr 9 mcg-formot 4.8 mcg/actuation HFA inhaler (Breztri Aerosphere) 2 inh inhalation BID BREATHING 10/17/24 cholecalciferol (vitamin D3) 50 mcg (2,000 unit) capsule 50 mcg PO DAILY SUPPLEMENT 10/17/24 clozapine 100 mg tablet 150 mg PO QHS 10/17/24 docusate sodium 100 mg capsule (Col-Rite) 100 mg PO BID CONSTIPATION 10/17/24 guaifenesin 600 mg tablet, extended release 12 hr 600 mg PO BID ALLERGIES 10/17/24 hydrophilic 1 applic topical DAILY PRN dry skin 10/17/24 lidocaine 5 % topical patch (DermacinRx Lidocan) 1 patch topical DAILY PRN pain 10/17/24 lisinopril 30 mg tablet 30 mg PO DAILY BLOOD PRESSURE 10/17/24 loperamide 2 mg capsule (Anti-Diarrheal (loperamide)) 2 mg PO Q6H PRN loose stool 10/17/24 metformin 500 mg tablet 2,000 mg PO DAILY DIABETES 10/17/24 mirabegron 25 mg tablet,extended release 24 hr (Myrbetriq) 25 mg PO DAILY OVERRACTIVE BLADDER 10/17/24 pantoprazole 40 mg tablet,delayed release 40 mg PO DAILY 10/17/24 rosuvastatin 40 mg tablet (Crestor) 40 mg PO DAILY CHOLESTROL 10/17/24 semaglutide 1 mg/dose (4 mg/3 mL) subcutaneous pen injector 1 mg subcut QWEEK DIABETES 10/17/24 tamsulosin 0.4 mg capsule 0.8 mg PO QHS PROSTATE 10/17/24 Weight / BMI Weight Weight: 87.8 kg Body Mass Index (BMI) 28.5 ABG / Lab / Microbiology Data 10/19/24 06:35 10/19/24 06:35 Laboratory: Laboratory Results - last 24 hr 10/18/24 11:42: POC Glucose 338 H 10/18/24 16:14: POC Glucose 367 H 10/18/24 20:36: POC Glucose 359 H 10/19/24 06:18: POC Glucose 244 H 10/19/24 06:35: WBC 11.3 H, RBC 4.73, Hgb 13.0, Hct 40.1, MCV 84.8, MCH 27.5, MCHC 32.4, RDW Std Deviation 45.2 H, RDW Coeff of Joy 14.6, Plt Count 230, MPV 10.4, Immature Gran % (Auto) 0.500, Neut % (Auto) 79.3 H, Lymph % (Auto) 13.3 L, [place] % (Auto) 6.6, Eos % (Auto) 0.1, Baso % (Auto) 0.2, Absolute Neuts (auto) 9.0 H, Absolute Lymphs (auto) 1.50, Nucleated RBC % 0, Sodium 139, Potassium 3.9, Chloride 102, Carbon Dioxide 26.2, Anion Gap 10, BUN 15, Creatinine 0.91, Estim Creat Clear Calc 86.39, Est GFR (MDRD) Non-Af 92, BUN/Creatinine Ratio 16.8, Glucose 261 H, Calcium 8.9 Microbiology: Microbiology 10/17/24 14:12 Stool Clostridioides difficile (PCR) - Final 10/17/24 13:40 Mucosa - Nasopharyngeal Respiratory Panel (PCR) - Final 10/17/24 15:38 Nasal Secretion SARS-CoV-2 Antigen (Rapid) - Final Radiography Diagnostic Testing: Radiology Impression Echocardiogram 10/18/24 07:23 Interpretation Summary The estimated ejection fraction is 55-60 %. Normal LV systolic function No significant valvular abnormality No prior echocardiogram to compare. Ordering Physician: Magna Cooper Referring Physician: [facility] Performed By: Susanna Love, REBECA, RVT Meaningful Use Info Ischemic Stroke Statin Dosing Therapy Reference: STATIN DOSE THERAPY REFERENCE: * Patients > 75 years receive moderate or high dose statin therapy. * Patients 75 years or YOUNGER should receive HIGH intensity statin dose unless contraindicated. You will be required to document reason for non-treatment if statin daily dose does not meet guidelines. HIGH DOSE STATIN THERAPY DAILY Atorvastatin > than or = to 40 mg Rosuvastatin > than or = to 20 mg Amlodipine + Atorvastatin > than or = to 2.5/40 mg Ezetimibe + Simvastatin 10/80 mg Simvastatin 80mg Discharge Plan Admission Admit Date/Time: 10/17/24 12:21 Attending Provider: Magan Cooper Primary Care Provider: [facility] Discharge Orders/Prescriptions Prescriptions: No Action lisinopril 30 mg tablet 30 mg PO DAILY tamsulosin 0.4 mg capsule 0.8 mg PO QHS loperamide [Anti-Diarrheal (loperamide)] 2 mg capsule 2 mg PO Q6H PRN (Reason: loose stool) rosuvastatin [Crestor] 40 mg tablet 40 mg PO DAILY clozapine 100 mg tablet 150 mg PO QHS mirabegron [Myrbetriq] 25 mg tablet extended release 24 hr 25 mg PO DAILY pantoprazole 40 mg tablet,delayed release (DR/EC) 40 mg PO DAILY semaglutide 1 mg/dose (4 mg/3 mL) pen injector 1 mg subcut QWEEK Rx Instructions: TAKE ON MONDAYS lidocaine [DermacinRx Lidocan] 5 % adhesive patch,medicated 1 patch topical DAILY PRN (Reason: pain) Rx Instructions: leave on most painful area for up to 12 hrs metformin 500 mg tablet 2,000 mg PO DAILY guaifenesin 600 mg tablet extended release 12hr 600 mg PO BID docusate sodium [Col-Rite] 100 mg capsule 100 mg PO BID hydrophilic Ointment 1 applic topical DAILY PRN (Reason: dry skin) cholecalciferol (vitamin D3) 50 mcg (2,000 unit) capsule 50 mcg PO DAILY albuterol sulfate 1.25 mg/3 mL solution for nebulization 0.5 mg inhalation 4X/DAY PRN (Reason: shortness of breath or wheezing) Breztri Aerosphere 160-9-4.8 mcg/actuation HFA aerosol inhaler 2 inh inhalation BID albuterol sulfate [Ventolin HFA] 90 mcg/actuation HFA aerosol inhaler 2 inh inhalation 4X/DAY PRN (Reason: shortness of breath or wheezing) Referrals / Follow Up: [facility] [Primary Care Provider] -
[2024-10-19] MEDS: Cefdinir 300 MG Capsule PO ×2 (08:30→22:27)
[2024-10-19] MEDS: predniSONE 20 MG Tablet 40 MG PO (08:30)
[2024-10-19] MEDS: guaiFENesin 600 MG Tablet PO ×2 (08:30→22:27)
[2024-10-19] MEDS: Pantoprazole Sodium 40 MG Tablet PO (08:30)
[2024-10-19] MEDS: Docusate Sodium 100 MG Capsule PO ×2 (08:31→22:27)
[2024-10-19] MEDS: Vibegron 75 MG TABLET PO (08:31)
[2024-10-19] MEDS: Lisinopril 10 MG Tablet 30 MG PO (08:37)
[2024-10-19] MEDS: Insulin Glargine-YFGN 100 UNIT/ML Pen 10 UNIT SC ×2 (08:41→22:29)
[2024-10-19] MEDS: Enoxaparin 40 MG/0.4 ML Syringe SC (08:42)
--- NOTE | 2024-10-19 09:09 | PN.HOSP_ITS ---
Reason for Visit Reason for Visit: Diagnoses Essential (primary) hypertension (10/17/24) Chronic obstructive pulmonary disease with (acute) exacerbation (10/17/24) Subjective Subjective Patient seen remains dyspneic and tachypneic at rest. Objective Data Objective Data Vital Signs: Vital Signs Temp Pulse Resp BP Pulse Ox O2 Del Method O2 Flow Rate 97.8 F 90 18 152/77 H 94 Nasal Cannula 2 10/19/24 08:14 10/19/24 08:14 10/19/24 08:14 10/19/24 08:14 10/19/24 08:14 10/19/24 08:44 10/19/24 08:44 FiO2 21 10/19/24 00:00 Oxygen Flow Rate (L/min) 2 Oxygen Delivery Method Nasal Cannula Weight: 87.8 kg Body Mass Index (BMI) 28.5 Intake & Output: Intake and Output for Last 24 Hours 10/17/24 10/18/24 10/19/24 23:59 23:59 23:59 Intake Total 300 / 300 1340 / 1340 Output Total 300 / 300 1000 / 1425 1000 / 1000 Balance 0 / 0 340 / -85 -1000 / -1000 Lab / Micro Data 10/19/24 06:35 10/19/24 06:35 Labs: Laboratory Results - last 24 hr 10/18/24 11:42: POC Glucose 338 H 10/18/24 16:14: POC Glucose 367 H 10/18/24 20:36: POC Glucose 359 H 10/19/24 06:18: POC Glucose 244 H 10/19/24 06:35: WBC 11.3 H, RBC 4.73, Hgb 13.0, Hct 40.1, MCV 84.8, MCH 27.5, MCHC 32.4, RDW Std Deviation 45.2 H, RDW Coeff of Joy 14.6, Plt Count 230, MPV 10.4, Immature Gran % (Auto) 0.500, Neut % (Auto) 79.3 H, Lymph % (Auto) 13.3 L, [place] % (Auto) 6.6, Eos % (Auto) 0.1, Baso % (Auto) 0.2, Absolute Neuts (auto) 9.0 H, Absolute Lymphs (auto) 1.50, Nucleated RBC % 0, Sodium 139, Potassium 3.9, Chloride 102, Carbon Dioxide 26.2, Anion Gap 10, BUN 15, Creatinine 0.91, Estim Creat Clear Calc 86.39, Est GFR (MDRD) Non-Af 92, BUN/Creatinine Ratio 16.8, Glucose 261 H, Calcium 8.9 Micro: Microbiology 10/17/24 14:12 Stool Clostridioides difficile (PCR) - Final 10/17/24 13:40 Mucosa - Nasopharyngeal Respiratory Panel (PCR) - Final 10/17/24 15:38 Nasal Secretion SARS-CoV-2 Antigen (Rapid) - Final Radiography Diagnostic Testing: Radiology Impression Echocardiogram 10/18/24 07:23 Interpretation Summary The estimated ejection fraction is 55-60 %. Normal LV systolic function No significant valvular abnormality No prior echocardiogram to compare. Ordering Physician: Magan Cooper Referring Physician: [facility] Performed By: Susanna Love, REBECA, RVT Physical Exam Narrative GENERAL: Dyspneic at rest HEENT: Atraumatic; normocephalic EYES; Anicteric, Normal Conjunctiva NECK; supple, normal thyroid, RESPIRATORY: Diminished to auscultation with bilateral wheezes CARDIOVASCULAR: Regular S1 S2, tachycardic GI: soft, normoactive bowel sounds, : No Renal angle tenderness; EXTREMITIES: No edema, no clubbing, MUSCULOSKELETAL: no muscle wasting NEURO: Awake; no lateralizing signs. SKIN: No Rash PSYCH; Flat affect Assessment & Plan Assessment/Plan (1) Hypertension: (2) Acute exacerbation of chronic obstructive pulmonary disease (COPD): PLAN: Plan Patient is a 68-year-old gentleman presenting with shortness of breath 1. Acute hypoxic respiratory failure Secondary to COPD with acute exacerbation. Patient was placed on noninvasive ventilation BiPAP admitted to a monitored bed as part of his management patient started on systemic steroid, bronchodilator treatment and antibiotic therapy with cefdinir. Patient oxygen saturations currently being titrated to keep saturation greater than or above 90. As part of patient's evaluation ordered acute viral respiratory panel, COVID assay. Chest x-ray obtained in the ED was questionable for mild pulmonary vascular congestion however patient presentation not consistent with acute congestive heart failure ? 10/18/2024; patient subsequently been weaned off BiPAP. Now on nasal cannula.Plans for patient to be assessed for home oxygen prior to discharge ? 10/19/2024; plan was for patient to have been assessed for possible discharge however patient remains significantly dyspneic at rest will therefore keep for an additional day pending medical stabilization. Patient to be assessed for home oxygen prior to discharge 2. Accelerated hypertension ? Patient systolic blood pressure was markedly elevated in the ED with SBP greater than 180. Per patient he has not taken his a.m. medications. Plan is to reconcile and resume patient home meds also added hydralazine as needed for systolic blood pressure greater than 160 ? 10/18/2024; patient blood pressure levels still remain elevated however there has been some improvement compared to when first admitted. 3. Diabetes mellitus type II -patient's oral hypoglycemics held. Placed on long acting insulin, Accu-Cheks a.c. and at bedtime and covered with sliding scale insulin ? 10/18/2024; patient glucose levels elevated given concomitant use of steroid subsequently adjusted insulin dose 4. Elevated troponin Secondary to demand ischemia from hypoxia will monitor and obtain a 2D echo as part of patient's evaluation 5. Schizoaffective disorder ? Patient is on clozapine plan is to continue with home dose 6. GERD ? Patient is on PPI continue 7. BPH with lower urinary obstructive symptoms - Patient treated with tamsulosin 8. DVT prophylaxis ? On enoxaparin Charges/Coding Visit Charges Inpatient E&M: 11660 Subs Hosp L2
[2024-10-19] MEDS: Albuterol 2.5 MG/3 ML VIAL.NEB. INHALATION (09:18)
--- NOTE | 2024-10-19 10:49 | CASEMGMT ---
RN CM Assessment Face to Face with patient for initial transition planning/care coordination assessment. RN CM introduced self and role at [facility], pt voices understanding. Pt is A&Ox4 and is resting comfortably in the chair and is calm. Care providers, pharmacy, and demographics verified. Admitting dx: COPD with acute Exacerbation LACE Strata: 2 PCP: Dr. Cox through the [facility] Specialists: Pulmonology through the [place] Preferred Pharmacy: [facility] Insurance: [facility] Only. Pt denies having a secondary as he reports he cannot afford it Prescription Benefit: Yes LNOK: Pt reports that he has 6 children. Pt reports that his daughters are his primary support people including Юлия, Elena, and Samantha. Living Arrangements: Pt is around this [facility] camping. Pt is from [place] and plans to DC back to [place] once medically ready. Pt lives with his daughter (Юлия), ASHLEY, and GD in a single story home with 4 steps to enter ADLs/IADLs: Pt reports that he is mainly independent but that his family assists him as needed Transportation: Pt's daughters are his main source of transportation. DME: [employer] with sufficient supplies and pen needles for insulin shots. Pt has a regular BGM with sufficient supplies as a backup. Pt also states that he has a FWW, quad cane, straight cane, shower chair, grab bars, pulse ox, BP Machine, inhaler, and nebulizer. Pt does not have home oxygen. Pt reports that [facility] only [facility] Per the compliance testing analyst today, pt qualifies for 2L w/ exertion. However, Dr. Cooper states that the pt will not be discharging today and will likely be discharging tomorrow. CM to follow for updated O2 testing the day of DC. This RN CM provided the pt with the required prerequisite paperwork needed for home oxygen through the [place]/ [facility] for signing. HHC/SNF: Reports skilled HHC history through the [place] Smoking history: Pt states that he quit smoking over 10 years ago Pt?s goal: Home Plan: Home with pt's family support, follow for new oxygen needs. Pt denies the acute need for HH or OP therapy and states that he feels safe returning home with his family once medically ready. Pt states that he plans to crab picker his prescriptions at his pharmacy on his way back home to [place]. Pt states he plans to follow up with his PCP subsequently. Pt denies further needs at this time. CM to follow. Jono Mccurdy RN CM
[2024-10-19] MEDS: LORazepam 1 MG Tablet PO ×2 (11:18→22:36)
[2024-10-19 16:50] LABS: Bedside Glucose 358 mg/dL (74-106)
[2024-10-19 17:04] LABS: Bedside Glucose 370 mg/dL (74-106)
[2024-10-19] MEDS: cloZAPine 25 MG TABLET 150 MG PO (22:27)
[2024-10-19] MEDS: Tamsulosin HCl 0.4 MG Capsule 0.8 MG PO (22:27)
[2024-10-19] MEDS: Atorvastatin Calcium 80 MG Tablet PO (22:27)
[2024-10-19] MEDS: 0.9% Saline Lock 10 ML Syringe IV (22:28)
[2024-10-19 23:16] LABS: Bedside Glucose 335 mg/dL (74-106)
[2024-10-20] VITALS (9 sets, daily range): BP systolic 140–176; BP diastolic 71–85; PULSE 72–98; RESP 18–20; TEMP 36.2–36.9; O2SAT 88–99
[2024-10-20] MEDS: hydrALAZINE 20 MG/ML Vial 10 MG IV (05:05)
[2024-10-20] MEDS: 0.9% Saline Lock 10 ML Syringe IV ×2 (05:05→06:07)
[2024-10-20] MEDS: LORazepam 1 MG Tablet PO (05:56)
[2024-10-20 06:05] LABS: Absolute Lymphocyte Count 1.82 X10^3/uL (0.83-4.51); Absolute Neutrophil Count 6.8 X10^3/uL (2.0-7.7); Basophil# 0.03 X10^3/uL; Basophil% 0.3 % (0-1); Eosinophil# 0.25 X10^3/uL; Eosinophils% 2.6 % (0-5); Hematocrit 39.3 % (40-54); Hemoglobin 12.6 g/dL (13.0-16.5); Lymphocyte # 1.82 X10^3/ul (0.83-4.51); Lymphocyte % 18.9 % (19-41); Mean Corp Hgb Conc 32.1 g/dL (32-36); Mean Corpuscular Hgb 27.5 pg (27.0-32.0); Mean Corpuscular Volume 85.6 fL (80-94); Mean Platelet Vol. 10.9 fl (6.2-12.0); Monocyte% 7.3 % (0-10); NRBC Flagged by Analyzer 0 % (0-5); Neutrophil # 6.76 X10^3/uL (2.7-7.7); Platelet Count 213 K/mm3 (150-450); RBC Distribution Width CV 14.3 % (11.6-14.6); RBC Distribution Width SD 44.5 fl (35.1-43.9); Red Blood Count 4.59 M/mm3 (4.6-6.2); White Blood Count 9.7 K/mm3 (4.4-11.0)
[2024-10-20] MEDS: Ondansetron 4 MG/2 ML Vial IV (06:07)
[2024-10-20] MEDS: Insulin Lispro 100 UNIT/ML INSULN.PEN SC ×2 (06:16→12:01)
[2024-10-20 06:31] LABS: Anion Gap 10 (5-15); BUN 15 mg/dL (4-19); BUN/Creat Ratio 18.7 RATIO (10-20); Calcium,Total 8.6 mg/dL (7.6-11.0); Carbon Dioxide 27.4 mmol/L (21.0-32.0); Chloride 101 mmol/L (98-108); Creatinine, Serum 0.82 mg/dL (0.70-1.20); EST Glomerular Filtration Rate 96 (>60); Estimated Creatinine Clearance 95.87 ml/min (50-250); Glucose 267 mg/dL (70-99); Potassium 3.8 mmol/L (3.3-5.1); Sodium Level 139 mmol/L (133-145)
[2024-10-20 07:03] LABS: Bedside Glucose 248 mg/dL (74-106)
[2024-10-20] MEDS: Ipratropium/Albuterol Sulfate 3 ML AMPUL.NEB INHALATION ×2 (07:19→10:34)
--- NOTE | 2024-10-20 10:10 | CASEMGMT ---
Per the RN O2 testing, pt qualifies for 2L of exertion. Rx signed by Dr. Cooper. Pt [facility] the required [facility]. Rx and and documents faxed to the [facility] ([phone]). TC to the [facility] and this RN CM connected with Shruthi ([employer]). Shruthi reports that she has received the referral and that the [facility] will be able to deliver the oxygen equipment to the bedside today. SHIRA CM to pt room. Pt updated and aware to call [facility] once he arrives home to have the remaining oxygen equipment delivered to his home. Pt has the number and and states understanding. Pt states that his daughter will pick him up from the hospital today and that he plans to pick up operator his prescriptions on his way home to [place]. Pt denies further DC needs. RN notified.
[2024-10-20] MEDS: Docusate Sodium 100 MG Capsule PO (10:14)
[2024-10-20] MEDS: predniSONE 20 MG Tablet 40 MG PO (10:14)
[2024-10-20] MEDS: Vibegron 75 MG TABLET PO (10:14)
[2024-10-20] MEDS: Lisinopril 10 MG Tablet 30 MG PO (10:15)
[2024-10-20] MEDS: Pantoprazole Sodium 40 MG Tablet PO (10:15)
[2024-10-20] MEDS: Enoxaparin 40 MG/0.4 ML Syringe SC (10:15)
[2024-10-20] MEDS: Cefdinir 300 MG Capsule PO (10:15)
[2024-10-20] MEDS: guaiFENesin 600 MG Tablet PO (10:15)
[2024-10-20] MEDS: Insulin Glargine-YFGN 100 UNIT/ML Pen 10 UNIT SC (10:16)
--- NOTE | 2024-10-20 10:31 | DS.PCM_ITS ---
Providers Date of Admission: 10/17/24 Date of Discharge: 10/20/24 Primary Care Physician: [facility] Reason For Visit: COPD WITH ACUTE EXACERBATION Diagnosis Discharge Diagnosis (1) Hypertension: Status: Chronic Code(s): I10 - Essential (primary) hypertension (2) Acute exacerbation of chronic obstructive pulmonary disease (COPD): Status: Chronic Code(s): J44.1 - Chronic obstructive pulmonary disease with (acute) exacerbation Plan Patient is a 68-year-old gentleman presenting with shortness of breath 1. Acute hypoxic respiratory failure Secondary to COPD with acute exacerbation. Patient was placed on noninvasive ventilation BiPAP admitted to a monitored bed as part of his management patient started on systemic steroid, bronchodilator treatment and antibiotic therapy with cefdinir. Patient oxygen saturations currently being titrated to keep saturation greater than or above 90. As part of patient's evaluation ordered acute viral respiratory panel, COVID assay. Chest x-ray obtained in the ED was questionable for mild pulmonary vascular congestion however patient presentation not consistent with acute congestive heart failure ? 10/18/2024; patient subsequently been weaned off BiPAP. Now on nasal cannula.Plans for patient to be assessed for home oxygen prior to discharge ? 10/19/2024; plan was for patient to have been assessed for possible discharge however patient remains significantly dyspneic at rest will therefore keep for an additional day pending medical stabilization. Patient to be assessed for home oxygen prior to discharge 10/20/2024; I have reviewed the oxygen testing, and this patient qualifies for the home equipment and portability. The patient is mobile in the home and the community. 2. Accelerated hypertension ? Patient systolic blood pressure was markedly elevated in the ED with SBP greater than 180. Per patient he has not taken his a.m. medications. Plan is to reconcile and resume patient home meds also added hydralazine as needed for systolic blood pressure greater than 160 ? 10/18/2024; patient blood pressure levels still remain elevated however there has been some improvement compared to when first admitted. 3. Diabetes mellitus type II -patient's oral hypoglycemics held. Placed on long acting insulin, Accu-Cheks a.c. and at bedtime and covered with sliding scale insulin ? 10/18/2024; patient glucose levels elevated given concomitant use of steroid subsequently adjusted insulin dose 4. Elevated troponin Secondary to demand ischemia from hypoxia will monitor and obtain a 2D echo as part of patient's evaluation 5. Schizoaffective disorder ? Patient is on clozapine plan is to continue with home dose 6. GERD ? Patient is on PPI continue 7. BPH with lower urinary obstructive symptoms - Patient treated with tamsulosin 8. DVT prophylaxis ? On enoxaparin Medications at Discharge Home Medications albuterol sulfate 1.25 mg/3 mL solution for nebulization 0.5 mg inhalation 4X/DAY PRN shortness of breath or wheezing 10/17/24 albuterol sulfate 90 mcg/actuation aerosol inhaler (Ventolin HFA) 2 inh inhalation 4X/DAY PRN shortness of breath or wheezing 10/17/24 budesonide 160 mcg-glycopyr 9 mcg-formot 4.8 mcg/actuation HFA inhaler (Breztri Aerosphere) 2 inh inhalation BID BREATHING 10/17/24 cholecalciferol (vitamin D3) 50 mcg (2,000 unit) capsule 50 mcg PO DAILY SUPPLEMENT 10/17/24 clozapine 100 mg tablet 150 mg PO QHS 10/17/24 docusate sodium 100 mg capsule (Col-Rite) 100 mg PO BID CONSTIPATION 10/17/24 guaifenesin 600 mg tablet, extended release 12 hr 600 mg PO BID ALLERGIES 10/17/24 hydrophilic 1 applic topical DAILY PRN dry skin 10/17/24 lidocaine 5 % topical patch (DermacinRx Lidocan) 1 patch topical DAILY PRN pain 10/17/24 lisinopril 30 mg tablet 30 mg PO DAILY BLOOD PRESSURE 10/17/24 loperamide 2 mg capsule (Anti-Diarrheal (loperamide)) 2 mg PO Q6H PRN loose stool 10/17/24 metformin 500 mg tablet 2,000 mg PO DAILY DIABETES 10/17/24 mirabegron 25 mg tablet,extended release 24 hr (Myrbetriq) 25 mg PO DAILY OVERRACTIVE BLADDER 10/17/24 pantoprazole 40 mg tablet,delayed release 40 mg PO DAILY 10/17/24 rosuvastatin 40 mg tablet (Crestor) 40 mg PO DAILY CHOLESTROL 10/17/24 semaglutide 1 mg/dose (4 mg/3 mL) subcutaneous pen injector 1 mg subcut QWEEK DIABETES 10/17/24 tamsulosin 0.4 mg capsule 0.8 mg PO QHS PROSTATE 10/17/24 cefdinir 300 mg capsule 300 mg PO Q12 #10 caps 10/20/24 furosemide 40 mg tablet (Lasix) 40 mg PO DAILY #60 tabs 10/20/24 lorazepam 1 mg tablet 1 mg PO Q4H PRN PRN Anxiety/Agitation 5 days #14 tabs 10/20/24 potassium chloride 20 mEq tablet,extended release(part/cryst) 20 meq PO DAILY #60 tabs 10/20/24 prednisone 20 mg tablet 40 mg (2 x 20 mg) PO DAILY@0800 #10 tabs 10/20/24 Hospital Course Summary of Care Provided Minutes Spent on Discharge: 35 Physical Exam Narrative GENERAL: Patient comfortable at rest HEENT: Atraumatic; normocephalic EYES; Anicteric, Normal Conjunctiva NECK; supple, normal thyroid, RESPIRATORY: Diminished to auscultation CARDIOVASCULAR: Regular S1 S2, GI: soft, normoactive bowel sounds, : No Renal angle tenderness; EXTREMITIES: No edema, no clubbing, MUSCULOSKELETAL: no muscle wasting NEURO: Awake; no lateralizing signs. SKIN: No Rash PSYCH; Flat affect Weight / BMI Weight Weight: 87.8 kg Body Mass Index (BMI) 28.5 ABG / Lab / Microbiology Data 10/20/24 05:08 10/20/24 05:08 Laboratory: Laboratory Results - last 24 hr 10/19/24 11:20: POC Glucose 358 H 10/19/24 16:38: POC Glucose 370 H 10/19/24 22:26: POC Glucose 335 H 10/20/24 05:08: WBC 9.7, RBC 4.59 L, Hgb 12.6 L, Hct 39.3 L, MCV 85.6, MCH 27.5, MCHC 32.1, RDW Std Deviation 44.5 H, RDW Coeff of Joy 14.3, Plt Count 213, MPV 10.9, Immature Gran % (Auto) 0.900, Neut % (Auto) 70.0, Lymph % (Auto) 18.9 L, [place] % (Auto) 7.3, Eos % (Auto) 2.6, Baso % (Auto) 0.3, Absolute Neuts (auto) 6.8, Absolute Lymphs (auto) 1.82, Nucleated RBC % 0, Sodium 139, Potassium 3.8, Chloride 101, Carbon Dioxide 27.4, Anion Gap 10, BUN 15, Creatinine 0.82, Estim Creat Clear Calc 95.87, Est GFR (MDRD) Non-Af 96, BUN/Creatinine Ratio 18.7, G lucose 267 H, Calcium 8.6 10/20/24 06:14: POC Glucose 248 H Microbiology: Microbiology 10/18/24 08:00 Sputum, Expectorated/Coughed Gram Stain - Final 10/17/24 09:11 Blood Culture (Wb) - Anticubital Right Blood Culture - Preliminary No growth in 48 hours. 10/17/24 09:08 Blood Culture (Wb) - Anticubital Left Blood Culture - Preliminary No growth in 48 hours. 10/17/24 09:38 Urine, Clean Catch Urine Culture - Final Mixed Gram Positive Organisms 10/17/24 14:12 Stool Clostridioides difficile (PCR) - Final 10/17/24 13:40 Mucosa - Nasopharyngeal Respiratory Panel (PCR) - Final 10/17/24 15:38 Nasal Secretion SARS-CoV-2 Antigen (Rapid) - Final D/C Instructions Discharge Diet: 1800 Calorie Control Diet Discharge Activity: Return to Normal Activity Call your doctor if you observe: Fever of 101 or Higher, Shortness of breath, Fainting spells and Chest pain DC O2, CPAP, BIPAP Needs Home O2 Discharge instructions: Yes Type of respiratory needs?: Oxygen Oxygen frequency: Continuous Continuous oxygen liters per minute: 2 DC home with Oxygen: Yes Home O2 MD Review: I have reviewed the oxygen testing, and the patient qualifies for home oxygen equipment and portability. The patient is mobile in the home and the community. Meaningful Use Info Meaningful Use Meaningful Use Diagnoses (Choose all that apply): None applicable Ischemic Stroke Statin Dosing Therapy Reference: STATIN DOSE THERAPY REFERENCE: * Patients > 75 years receive moderate or high dose statin therapy. * Patients 75 years or YOUNGER should receive HIGH intensity statin dose unless contraindicated. You will be required to document reason for non-treatment if statin daily dose does not meet guidelines. HIGH DOSE STATIN THERAPY DAILY Atorvastatin > than or = to 40 mg Rosuvastatin > than or = to 20 mg Amlodipine + Atorvastatin > than or = to 2.5/40 mg Ezetimibe + Simvastatin 10/80 mg Simvastatin 80mg Discharge Plan Admission Admit Date/Time: 10/17/24 12:21 Attending Provider: Magan Cooper [facility] Provider[facility] Discharge Orders/Prescriptions Prescriptions: New prednisone 20 mg Tablet 40 mg PO DAILY@0800 Qty: 10 0RF lorazepam 1 mg Tablet 1 mg PO Q4H PRN PRN (Reason: Anxiety/Agitation) 5 Days Qty: 14 0RF cefdinir 300 mg Capsule 300 mg PO Q12 Qty: 10 0RF furosemide [Lasix] 40 mg tablet 40 mg PO DAILY Qty: 60 0RF potassium chloride 20 mEq tablet,ER particles/crystals 20 meq PO DAILY Qty: 60 0RF Continued lisinopril 30 mg tablet 30 mg PO DAILY tamsulosin 0.4 mg capsule 0.8 mg PO QHS loperamide [Anti-Diarrheal (loperamide)] 2 mg capsule 2 mg PO Q6H PRN (Reason: loose stool) rosuvastatin [Crestor] 40 mg tablet 40 mg PO DAILY clozapine 100 mg tablet 150 mg PO QHS mirabegron [Myrbetriq] 25 mg tablet extended release 24 hr 25 mg PO DAILY pantoprazole 40 mg tablet,delayed release (DR/EC) 40 mg PO DAILY semaglutide 1 mg/dose (4 mg/3 mL) pen injector 1 mg subcut QWEEK Rx Instructions: TAKE ON MONDAYS lidocaine [DermacinRx Lidocan] 5 % adhesive patch,medicated 1 patch topical DAILY PRN (Reason: pain) Rx Instructions: leave on most painful area for up to 12 hrs metformin 500 mg tablet 2,000 mg PO DAILY guaifenesin 600 mg tablet extended release 12hr 600 mg PO BID docusate sodium [Col-Rite] 100 mg capsule 100 mg PO BID hydrophilic Ointment 1 applic topical DAILY PRN (Reason: dry skin) cholecalciferol (vitamin D3) 50 mcg (2,000 unit) capsule 50 mcg PO DAILY albuterol sulfate 1.25 mg/3 mL solution for nebulization 0.5 mg inhalation 4X/DAY PRN (Reason: shortness of breath or wheezing) Breztri Aerosphere 160-9-4.8 mcg/actuation HFA aerosol inhaler 2 inh inhalation BID albuterol sulfate [Ventolin HFA] 90 mcg/actuation HFA aerosol inhaler 2 inh inhalation 4X/DAY PRN (Reason: shortness of breath or wheezing) [facility]errals [facility] - Disposition Disposition (needs filled in before D/C Order can be placed): Home, Self Care Charges/Coding Visit Charges Inpatient E&M: 81535 Disch Hosp >30min
--- NOTE | 2024-10-20 11:55 | CASEMGMT ---
[facility] calls [facility] RN CM requesting status update. Binta notified that the pt will be discharging home today with new oxygen. Binta denies further needs.
[2024-10-20 12:20] LABS: Bedside Glucose 300 mg/dL (74-106)
--- NOTE | 2024-10-20 13:06 | PHA.DC_ITS ---
Pharmacy [facility] Counseling Pharmacy Service has performed discharge medication reconciliation and counseling for this patient. 1. CEFDINIR 300MG PO BID X 5 DAYS 2. FUROSEMIDE 40MG PO DAILY 3. LORAZEPAM 1MG PO Q4H PRN ANXIETY/AGITATION 4. POTASSIUM CHLORIDE 20MEQ PO DAILY 5. PREDNISONE 40MG PO DAILY X 5 DAYS The patient's discharge medication list was reviewed for discrepancies and discrepancies were resolved. The patient was counseled on the following discharge medications and changes in medications for homegoing were reviewed. The Reason for Use, instructions for use, and potential side effects were reviewed for all new medications. The patient's questions regarding all of their medications were answered. The patient was able to verbally demonstrate an understanding of their discharge medications. Medications at Discharge Home Medications albuterol sulfate 1.25 mg/3 mL solution for nebulization 0.5 mg inhalation 4X/DAY PRN shortness of breath or wheezing 10/17/24 albuterol sulfate 90 mcg/actuation aerosol inhaler (Ventolin HFA) 2 inh inhalation 4X/DAY PRN shortness of breath or wheezing 10/17/24 budesonide 160 mcg-glycopyr 9 mcg-formot 4.8 mcg/actuation HFA inhaler (Breztri Aerosphere) 2 inh inhalation BID BREATHING 10/17/24 cholecalciferol (vitamin D3) 50 mcg (2,000 unit) capsule 50 mcg PO DAILY SUPPLEMENT 10/17/24 clozapine 100 mg tablet 150 mg PO QHS 10/17/24 docusate sodium 100 mg capsule (Col-Rite) 100 mg PO BID CONSTIPATION 10/17/24 guaifenesin 600 mg tablet, extended release 12 hr 600 mg PO BID ALLERGIES 10/17/24 hydrophilic 1 applic topical DAILY PRN dry skin 10/17/24 lidocaine 5 % topical patch (DermacinRx Lidocan) 1 patch topical DAILY PRN pain 10/17/24 lisinopril 30 mg tablet 30 mg PO DAILY BLOOD PRESSURE 10/17/24 loperamide 2 mg capsule (Anti-Diarrheal (loperamide)) 2 mg PO Q6H PRN loose stool 10/17/24 metformin 500 mg tablet 2,000 mg PO DAILY DIABETES 10/17/24 mirabegron 25 mg tablet,extended release 24 hr (Myrbetriq) 25 mg PO DAILY OVERRACTIVE BLADDER 05/25/25 pantoprazole 40 mg tablet,delayed release 40 mg PO DAILY 10/17/24 rosuvastatin 40 mg tablet (Crestor) 40 mg PO DAILY CHOLESTROL 10/17/24 semaglutide 1 mg/dose (4 mg/3 mL) subcutaneous pen injector 1 mg subcut QWEEK DIABETES 10/17/24 tamsulosin 0.4 mg capsule 0.8 mg PO QHS PROSTATE 10/17/24 cefdinir 300 mg capsule 300 mg PO Q12 #10 caps 10/20/24 furosemide 40 mg tablet (Lasix) 40 mg PO DAILY #60 tabs 10/20/24 lorazepam 1 mg tablet 1 mg PO Q4H PRN PRN Anxiety/Agitation 5 days #14 tabs 10/20/24 potassium chloride 20 mEq tablet,extended release(part/cryst) 20 meq PO DAILY #60 tabs 10/20/24 prednisone 20 mg tablet 40 mg (2 x 20 mg) PO DAILY@0800 #10 tabs 10/20/24
== END 2024-10-20 15:26 | disposition home or self-care (01) | DRG 190 ==
LOC: ED 12:23 → PCU 12:47
PROVIDERS: Admitting Provider Internal Medicine; Emergency Provider Emergency Medicine; Visit Provider Internal Medicine
DX: J44.1 Chronic obstructive pulmonary disease with (acute) exacerbation (principal); J96.01 Acute respiratory failure with hypoxia; I16.9 Hypertensive crisis, unspecified; I24.89 Other forms of acute ischemic heart disease; F25.9 Schizoaffective disorder, unspecified; Z66 Do not resuscitate; E11.9 Type 2 diabetes mellitus without complications; I10 Essential (primary) hypertension; K21.9 Gastro-esophageal reflux disease without esophagitis; Z79.84 Long term (current) use of oral hypoglycemic drugs; Z87.891 Personal history of nicotine dependence; R79.89 Other specified abnormal findings of blood chemistry; N13.9 Obstructive and reflux uropathy, unspecified; N40.1 Benign prostatic hyperplasia with lower urinary tract symptoms
CPT/HCPCS: 36415; 71045; 80048; 80053; 81001; 82803; 82962; 83605; 83735; 84100; 84484; 85025; 85610; 85730; 87040; 87070; 87086; 87088; 87205; 87493; 87633; 87811; 93005; 93306; 94002; 94640; 94660; 94762; 99285; Q9957; A4216; J2405